=== PATIENT | female | born 1995 | race Caucasian/White ===

== ENCOUNTER 2021-09-20 20:51 | Emergency (ER) | payer MEDICAID, SELFPAY ==
[2021-09-20 20:53] VITALS: BP 133/83; PULSE 104; RESP 16; TEMP 37.1; O2SAT 97; BMI 25.7
--- NOTE | 2021-09-20 21:43 | EX.ED.GENINJ ---
HPI History of Present Illness Chief Complaint: Nausea/Vomiting Narrative Narrative: Patient presents with nausea and vomiting. This started with a migraine about a week ago she has chronic recurrent migraines, she had a gradual onset of headache which improved, however the nausea vomiting persisted. She has no abdominal pain. She has no vaginal discharge. No vaginal bleeding. No urinary symptoms. No recent fevers or chills. She is denying . [facility] Medical History (Updated 09/20/21 @ 23:[address] 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 Home Medications ondansetron 4 mg PO Q8H #10 tab 09/20/21 [Rx Last Taken Unknown] Allergy/AdvReac Type Severity Reaction Status Date / Time codeine AdvReac Unknown Verified 09/20/21 20:58 Surgical History (Updated 09/20/21 @ 21:17 by Charla Lang) History of cranioplasty Social History Smoking Status: Never smoker ROS ROS ED ROS Narrative Past medical history: Reviewed Medications: Reviewed Social history: Noncontributory Review of systems: All systems negative except as indicated General: No fever Eyes: No visual changes ENT: No upper airway congestion, normal voice Neck: No neck pain Cardiovascular: No chest pain Respiratory: No shortness of breath or cough Gastrointestinal: Nausea and vomiting as in HPI Genitourinary: No dysuria Musculoskeletal: Denies myalgias no difficulty with ambulation Skin: No rash Neurological: No memory loss, confusion or any focal weakness Psych: No recent behavioral changes Hematologic: No easy bleeding or easy bruising EXAM Physical Exam Narrative Exam Narrative: Physical exam General: Well nourished, Well developed, No Acute Distress Head: Normocephalic, Atraumatic Eyes: Conjunctiva not pale ENT: Slightly dry mucous membranes Neck: Supple, Nontender, No lymphadenopathy Cardiovascular: Regular rate, Regular rhythm Respiratory: No distress, CTA bilaterally Abdomen: Soft, no epigastric pain or tenderness, very slight suprapubic pain. Otherwise no guarding or rebound. No pain in McBurney's no right upper quadrant pain. Back: Nontender, Normal Inspection. Negative for: CVA tenderness Extremities: Nontender, No edema Skin: Normal color, No rash Neurological: Alert, Normal Strength, Normal Sensation Psychological: Normal affect Const Vital Signs: 09/20/21 20:53 Temperature 98.7 F Temperature Source Temporal Pulse Rate 104 H Respiratory Rate 16 Blood Pressure 133/83 H Blood Pressure Mean 99 Pulse Ox 97 Oxygen Delivery Method Room Air MDM MDM MDM Narrative Medical decision making narrative: Patient significantly improved and has a normal work-up. I reevaluated that she has no abdominal pain. She appears well I will discharge in stable condition. Lab Data Labs: Laboratory Results - last 24 hr 09/20/21 09/20/21 09/20/21 21:44 21:44 22:25 WBC 8.2 RBC 4.51 Hgb 14.2 Hct 40.9 MCV 90.7 MCH 31.5 MCHC 34.7 RDW Std Deviation 40.1 RDW Coeff of Manuela 12.1 Plt Count 183 MPV 9.2 Immature Gran % (Auto) 0.100 Neut % (Auto) 79.8 H Lymph % (Auto) 14.0 L [place] % (Auto) 5.9 Eos % (Auto) 0.0 Baso % (Auto) 0.2 Absolute Neuts (auto) 6.5 Absolute Lymphs (auto) 1.15 Nucleated RBC % 0 Sodium 136 Potassium 3.6 Chloride 105 Carbon Dioxide 23.0 Anion Gap 8 BUN 10 Creatinine 0.71 Estim Creat Clear Calc 96.63 Est GFR (MDRD) Af Amer 130 Est GFR (MDRD) Non-Af 107 BUN/Creatinine Ratio 14.1 Glucose 106 Calcium 9.2 Total Bilirubin 0.40 AST 14 L ALT 16 Alkaline Phosphatase 65 Total Protein 7.8 Albumin 4.2 Globulin 3.6 Albumin/Globulin Ratio 1.2 Urine Color Yellow Urine Clarity Clear Urine pH 7.0 Ur Specific [place] 1.015 Urine Protein 30 H Urine Glucose (UA) Normal Urine Ketones 150 A* Urine Occult Blood Negative Urine Nitrite Negative Urine Bilirubin Negative Urine Urobilinogen 1 H Ur Leukocyte Esterase 100 H Urine RBC 0 SEEN Urine WBC 0-5 SEEN Ur Squamous Epith Cells 0-5 SEEN Urine Bacteria 1+ Urine Mucus 1+ Urine Test Negative Discharge Plan Triage Chief Complaint: Nausea/Vomiting ED Provider: Luciano Mandel Dx/Rx/DC Orders Clinical Impression: Nausea & vomiting Instructions: ED Vomiting (Adult) Prescriptions: New ondansetron 4 mg tablet,disintegrating 4 mg PO Q8H Qty: 10 RF: 0 Primary Care Provider: Care Physician,No Primary Referrals: Care Physician,No Primary [Primary Care Provider] - Disposition Disposition: Home, Self Care
[2021-09-20] MEDS: 0.9% Normal Saline 1,000 ML 1000 ML IV (21:44)
[2021-09-20] MEDS: Ondansetron 4 MG/2 ML Vial IV (21:44)
[2021-09-20 21:52] LABS: Absolute Lymphocyte Count 1.15 X10^3/uL (0.83-4.51); Absolute Neutrophil Count 6.5 X10^3/uL (2.0-7.7); Basophil# 0.02 X10^3/uL; Basophil% 0.2 % (0-1); Hematocrit 40.9 % (37-47); Hemoglobin 14.2 g/dL (12.0-15.0); Lymphocyte # 1.15 X10^3/ul (0.83-4.51); Mean Corp Hgb Conc 34.7 g/dL (32-36); Mean Corpuscular Hgb 31.5 pg (27.0-32.0); Mean Corpuscular Volume 90.7 fL (81-99); Mean Platelet Vol. 9.2 fl (6.2-12.0); Monocyte# 0.48 X10^3/uL; Monocyte% 5.9 % (0-10); NRBC Flagged by Analyzer 0 % (0-5); Neutrophil # 6.53 X10^3/uL (2.7-7.7); Neutrophil % 79.8 % (47-70); Platelet Count 183 K/mm3 (150-450); RBC Distribution Width CV 12.1 % (11.6-14.6); RBC Distribution Width SD 40.1 fl (35.1-43.9); Red Blood Count 4.51 M/mm3 (4.2-5.4); White Blood Count 8.2 K/mm3 (4.4-11.0)
[2021-09-20 22:14] LABS: ALB/GLOB Ratio 1.2 RATIO (0.9-2.4); AST(SGOT) 14 U/L (15-37); Alanine Aminotransfer ALT/SGPT 16 U/L (13-56); Albumin, Serum 4.2 g/dL (3.2-5.0); Alkaline Phosphatase 65 U/L (45-117); Anion Gap 8 (5-15); BUN 10 mg/dL (7-18); BUN/Creat Ratio 14.1 RATIO (10-20); Calcium,Total 9.2 mg/dL (8.5-10.1); Chloride 105 mmol/L (98-107); Creatinine, Serum 0.71 mg/dL (0.55-1.02); EST Glomerular Filtration Rate 107 mL/min (>60); Est Glom Filt Rate - Afr Amer 130 mL/min (>60); Estimated Creatinine Clearance 96.63 ml/min; Globulin 3.6 g/dL (2.2-4.2); Glucose 106 mg/dL (74-106); Potassium 3.6 mmol/L (3.5-5.1); Protein, Total 7.8 g/dL (6.4-8.2); Sodium Level 136 mmol/L (136-145)
[2021-09-20 22:34] LABS: Red Blood Cells-Urine 0 SEEN /hpf (0-5)
[2021-09-20 22:36] LABS: Color, Urine Yellow (Yellow); Glucose, Dipstick Normal (Normal); Leukocyte Esterase-Dipstick 100 /ul (Negative); Nitrite-Dipstick Negative (Negative); Occult Blood-Urine Negative /ul (Negative); Protein-Dipstick 30 mg/dl (Negative); Specific Gravity, Urine 1.015 (1.002-1.030); Urine Bilirubin Dipstick Negative (Negative); Urine Clarity Clear (Clear); Urine Urobilinogen 1 mg/dl (Normal)
[2021-09-20 22:38] LABS: Ketone-Dipstick 150 mg/dl (Negative)
[2021-09-20 22:39] LABS: Internal QC Validated? YES +Cl - CLEAR BKGD; Pregnancy, Urine Negative Negative
[2021-09-20 22:41] LABS: Squamous Epithelial Cells - UA 0-5 SEEN /hpf (5-10); White Blood Cells 0-5 SEEN /hpf (0-5)
[2021-09-20 22:42] LABS: Bacteria 1+ /hpf (None Seen); Mucous, Urine 1+ /hpf (<or=2+)
== END 2021-09-20 23:32 | disposition home or self-care (01) ==
PROVIDERS: Emergency Provider Emergency Medicine; Visit Provider Emergency Medicine
DX: R11.2 Nausea with vomiting, unspecified (principal); R51.9 Headache, unspecified; F98.8 Other specified behavioral and emotional disorders with onset usually occurring in childhood and adolescence
CPT/HCPCS: 80053; 81001; 81025; 85025; 96361; 96374; 99284; J7030; J2405

== ENCOUNTER 2024-12-21 22:04 | Emergency (ER) | payer MEDICARE, MEDICAID, SELFPAY ==
[2024-12-21 22:04] VITALS: BP 139/104; PULSE 88; RESP 17; TEMP 36.7; O2SAT 97; BMI 29.6
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
--- OUTSIDE RECORDS SUMMARY | 2024-12-21 23:12 | XMS RPT_ITS | CCD ---
Author Organization [facility] Results Test Name Value Interpretation Reference Range Facil ity CNOVon 09-23-2021 CNOV Office Visit (UCWSTR ) DEA MANCILLA ([id number]) 1995 F Date Time Provider Department 09/23/21 12:15 PM ROSALVA ESTRADA [facility] During your visit today, we recorded the following information about you: Temperature Pulse Respiration Blood pressure 99.9 degrees 101/minute 18/minute 110/74 Weight 59.6 kg Rosalva Estrada PA-C 09/23/2021 6:48 PM Signed 09/23/2021 Patient presents with: Vomiting: low fever x5 days SUBJECTIVE: This is a 26 year old that is here today for Complaint(s) of vomiting x 5 days. + low grade fever. She was seen in the ER and urine and lab work normal. test negative. She had IV fluids and zofran and discharged with Rx for zofran. Having vomiting and dry heaves every 20 minutes per mom, occasional will go up to 1.5 hours between episodes. She did have a BM this morning, small hard yovany. No blood in the stools or black or tarry stools. She does feel like she has to have a BM, but having trouble. Still passing gas without difficulty. Not having any abdominal pain. Denies dysuria, urinary frequency. She is urinating normally. No POLLACK. PAST MEDICAL HISTORY Diagnosis Date - Asthma - Attention deficit disorder without mention of hyperactivity - Dnskqvh-Popfkbbgn-Ckk er syndrome - Murmur - PMH - PAST MEDICAL HISTORY OF multiple handicap- delayed learning - PMH - PAST MEDICAL HISTORY OF 13 yr started menses - PMH - PAST MEDICAL HISTORY OF 01/23/10 normal color vision ALLERGIES Codeine MEDICATIONS Current Outpatient Medications Medication Sig - ondansetron (ZOFRAN) 4 mg tablet Take by mouth every 8 hours as needed for nausea/vomiting. - atomoxetine (STRATTERA) 60 mg capsule Take 1 capsule by mouth once daily. - adapalene-benzoyl peroxide (EPIDUO) 0.1-2.5 % glwp Apply 1 application to affected area daily at bedtime. (Patient not taking: Reported on 09/05/2021 ) - atomoxetine (STRATTERA) 60 mg capsule Take 1 capsule by mouth once daily. - atomoxetine (STRATTERA) 60 mg capsule Take 1 capsule by mouth once daily. (Patient not taking: Reported on 09/05/2021 ) No current facility-administered medications for this visit. SOCIAL HISTORY Social History Tobacco Use - Smoking status: Never Smoker - Smokeless tobacco: Never Used Substance Use Topics - Alcohol use: No - Drug use: No REVIEW OF SYSTEMS See HPI OBJECTIVE: BP 110/74 Pulse 101 Temp 37.7 ?C (99.9 ?F) Resp 18 Wt 59.6 kg (131 lb 6.4 oz) LMP 03/01/2018 SpO2 99% BMI 23.09 kg/m? APPEARANCE Well appearing, alert, in no acute distress, well-hydrated, well nourished.ess. THROAT normal, no erythema NECK Supple, no adenopathy; HEART RRR with normal S1 and S2, LUNG clear to auscultation ABDOMEN bowel sounds normoactive, no bruits, soft, non-tender, non-distended, without organomegaly or palpable masses, no tenderness to palpation ASSESSMENT/PLAN: 1. Nausea and vomiting, unspecified vomiting type - ICD9: 787.01, ICD10: R11.2 zofran prn-discussed SE of constipation Start stool softener, increase fluid intake, small frequent sips Reviewed red flags and when to seek care sooner in ER, including abdominal pain, signs of dehydration, unable to pass gas or have a BM with abdominal pain. If vomiting not imroved in 24-48 hours to follow up, sooner if any worsening symptoms discussed. Nothing to eat for 24 hours after last episode of vomiting The patient indicates understanding of these issues and agrees with the plan. Rosalva Estrada PA-C 09/23/2021 Referring Provider: SELF [200] Allergies As of Date: 09/23/2021 Noted Allergy Reaction CODEINE 11/07/2005 11 - Vomiting Date Reviewed: 09/23/2021 Reviewed by: Rosalva Estrada PA-C - Fully Assessed Reason for Visit: Vomiting [120] Cmt: low fever x5 days Primary Visit Diagnosis:Nausea and vomiting, unspecified vomiting type [R11.2] Prescriptions as of 09/23/2021 - ondansetron (ZOFRAN) 4 mg tablet Take by mouth every 8 hours as needed for nausea/vomiting. - atomoxetine (STRATTERA) 60 mg capsule Take 1 capsule by mouth once daily. - adapalene-benzoyl peroxide (EPIDUO) 0.1-2.5 % glwp Apply 1 application to affected area daily at bedtime. - atomoxetine (STRATTERA) 60 mg capsule Take 1 capsule by mouth once daily. - atomoxetine (STRATTERA) 60 mg capsule Take 1 capsule by mouth once daily. Meds Comments as of 08/20/2010: Problem List As Of Date 09/23/2021 Noted Resolved Izciyvz-Wqnwzaanw-Wdn er syndrome [Q87.2] Attention deficit disorder without mention of h* Oligomenorrhea [N91.5] 09/14/2012 PMDD (premenstrual dysphoric disorder) [F32.81] 09/14/2012 Acne [L70.9] 09/14/2012 Avulsion, finger tip [S61.209A] 01/04/2013 Well adult exam [Z00.00] 08/24/2015 Letter Text Encounter Status:Closed by ROSALVA ESTRADA on 09/23/21 Normal [facility] Metabolic Prof ilon 09-21-2021 Albumin [Mass/Vol] 4.2 g/dL Normal 3.2-5.0 [facility] Comment on above: Performed By: #### L 500.4050, L100.0100 #### [facility] [address] [place], [address] Albumin/Globulin [Mass ratio] 1.2 {ratio} Normal 0.9-2.4 [facility] Comment on above: Performed By: #### L 500.4050, L100.0100 #### [facility] [address] [place], [address] ALK P 65 U/L Normal 45-117 [facility] Comment on above: Performed By: #### L 500.4050, L100.0100 #### [facility] [address] [place], [address] ALT [Catalytic activity/Vol] 16 U/L Normal 13-56 [facility] Comment on above: Performed By: #### L 500.4050, L100.0100 #### [facility] [address] [place], [address] AST [Catalytic activity/Vol] 14 U/L Low 15-37 [facility] Comment on above: Result Comment: Slig ht Hemolysis, Result may be falsely increased. Performed By: #### L 500.4050, L100.0100 #### [facility] [address] [place], [address] Bilirubin [Mass/Vol] 0.40 mg/dL Normal 0.20-1.00 [facility] Comment on above: Result Comment: For patients on eltrombopag therapy, use of Dimension Munger TBIL is not recommended. Performed By: #### L 500.4050, L100.0100 #### [facility] [address] [place], [address] BUN/CRE 14.1 RATIO Normal 10-20 [facility] Comment on above: Performed By: #### L 500.4050, L100.0100 #### [facility] [address] [place], [address] CA,Total 9.2 mg/dL Normal 8.5-10.1 [facility] Comment on above: Performed By: #### L 500.4050, L100.0100 #### [facility] [address] [place], [address] Chloride [Moles/Vol] 105 mmol/L Normal 98-107 [facility] Comment on above: Performed By: #### L 500.4050, L100.0100 #### [facility] [address] [place], [address] CO2 [Moles/Vol] 23.0 mmol/L Normal 21.0-32.0 [facility] Comment on above: Performed By: #### L 500.4050, L100.0100 #### [facility] [address] [place], [address] Creatinine [Mass/Vol] 0.71 mg/dL Normal 0.55-1.02 [facility] Comment on above: Result Comment: The validity of the calculated GFR GFRAA in patients over 70 years has not been determined. Clinical correlation is essential. Performed By: #### L 500.4050, L100.0100 #### [facility] [address] [place], [address] ECRCL 96.63 ml/min Normal [facility] Comment on above: Performed By: #### L 500.4050, L100.0100 #### [facility] [address] [place], [address] EST GFR - AA 130 mL/min Normal >60 [facility] Comment on above: Result Comment: Afri can Moldovan GFR Calc Performed By: #### L 500.4050, L100.0100 #### [facility] [address] [place], [address] GAP 8 Normal 5-15 [facility] Comment on above: Performed By: #### L 500.4050, L100.0100 #### [facility] [address] [place], [address] GFR/1.73 sq M.predicted among non-blacks MDRD (S/P/Bld) [Vol rate/Area] 107 mL/min/{1.73_m2} Normal >60 [facility] Comment on above: Result Comment: Non- GFR Calc Performed By: #### L 500.4050, L100.0100 #### [facility] [address] [place], [address] Globulin (S) [Mass/Vol] 3.6 g/dL Normal 2.2-4.2 [facility] Comment on above: Performed By: #### L 500.4050, L100.0100 #### [facility] [address] [place], [address] Glucose [Mass/Vol] 106 mg/dL Normal 74-106 [facility] Comment on above: Result Comment: Fast ing Glucose result from 100 to 125 mg/dL suggests IMPAIRED HOMEOSTASIS per A.D.A. criteria. Performed By: #### L 500.4050, L100.0100 #### [facility] [address] [place], [address] Potassium [Moles/Vol] 3.6 mmol/L Normal 3.5-5.1 [facility] Comment on above: Result Comment: Slig ht Hemolysis, Result may be falsely increased. Performed By: #### L 500.4050, L100.0100 #### [facility] [address] [place], [address] Sodium [Moles/Vol] 136 mmol/L Normal 136-145 [facility] Comment on above: Performed By: #### L 500.4050, L100.0100 #### [facility] [address] [place], [address] T PROT 7.8 g/dL Normal 6.4-8.2 [facility] Comment on above: Performed By: #### L 500.4050, L100.0100 #### [facility] [address] [place], [address] Urea nitrogen [Mass/Vol] 10 mg/dL Normal 7-18 [facility] Comment on above: Performed By: #### L 500.4050, L100.0100 #### [facility] [address] [place], [address] ,Urineon 09-21-2021 Beta HCG ( test) Ql (U) Negative Normal [facility] Comment on above: Order Comment: CLEAN CATCH Result Comment: Very dilute urine specimens, as indicated by a low specific gravity, may not contain termite control service representative levels of hCG. If is still suspected, a first morning urine specimen should be collected 48 hours later and tested. Performed By: #### L 400.0001, L400.7600 #### [facility] [address] [place], [address] Urinalysis, Completeon 09-21 BACTERIA 1+ /hpf Normal None Seen [facility] Comment on above: Order Comment: CLEAN CATCH Performed By: #### L 400.0001, L400.7600 #### [facility] [address] [place], [address] Mucus Ql (Urine sed) 1+ /hpf Normal [facility] Comment on above: Order Comment: CLEAN CATCH Performed By: #### L 400.0001, L400.7600 #### [facility] [address] [place], [address] EPI,SQUAMOUS 0-5 SEEN Normal 5-10 [facility] Comment on above: Order Comment: CLEAN CATCH Performed By: #### L 400.0001, L400.7600 #### [facility] [address] [place], [address] WBC 0-5 SEEN Normal 0-5 [facility] Comment on above: Order Comment: CLEAN CATCH Performed By: #### L 400.0001, L400.7600 #### [facility] [address] [place], [address] RBC 0 SEEN Normal 0-5 [facility] Comment on above: Order Comment: CLEAN CATCH Performed By: #### L 400.0001, L400.7600 #### [facility] [address] [place], [address] CBC W/Diff, Automatedon 03-0 4-2021 Absolute Lymph 1.15 X10 3/uL Normal 0.83-4.51 [facility] Comment on above: Performed By: #### L 500.4050, L100.0100 #### [facility] [address] [place], [address] Absolute Neut 6.5 X10 3/uL Normal 2.0-7.7 [facility] Comment on above: Performed By: #### L 500.4050, L100.0100 #### [facility] [address] [place], [address] Basophils/100 WBC (Bld) 0.2 % Normal 0-1 [facility] Comment on above: Performed By: #### L 500.4050, L100.0100 #### [facility] [address] [place], [address] Eosinophils/100 WBC (Bld) 0.0 % Normal 0-5 [facility] Comment on above: Performed By: #### L 500.4050, L100.0100 #### [facility] [address] [place], [address] Erythrocyte distribution width (RBC) [Ratio] 12.1 % Normal 11.6-14.6 [facility] Comment on above: Performed By: #### L 500.4050, L100.0100 #### [facility] [address] [place], [address] Hematocrit (Bld) [Volume fraction] 40.9 % Normal 37-47 [facility] Comment on above: Performed By: #### L 500.4050, L100.0100 #### [facility] [address] [place], [address] Hemoglobin (Bld) [Mass/Vol] 14.2 g/dL Normal 12.0-15.0 [facility] Comment on above: Performed By: #### L 500.4050, L100.0100 #### [facility] [address] [place], [address] IG% 0.100 Normal 0.0-0.9 [facility] Comment on above: Result Comment: IG% - Immature Granulocytes (promyelocytes, myelocytes and metamyelocytes) > 1% indicates that a LEFT SHIFT is Present. Performed By: #### L 500.4050, L100.0100 #### [facility] [address] [place], [address] Lymphocytes/100 WBC (Bld) 14.0 % Low 19-41 [facility] Comment on above: Performed By: #### L 500.4050, L100.0100 #### [facility] [address] [place], [address] MCH (RBC) [Entitic mass] 31.5 pg Normal 27.0-32.0 [facility] Comment on above: Performed By: #### L 500.4050, L100.0100 #### [facility] [address] [place], [address] MCHC (RBC) [Mass/Vol] 34.7 g/dL Normal 32-36 [facility] Comment on above: Performed By: #### L 500.4050, L100.0100 #### [facility] [address] [place], [address] MCV (RBC) [Entitic vol] 90.7 fL Normal 81-99 [facility] Comment on above: Performed By: #### L 500.4050, L100.0100 #### [facility] [address] [place], [address] Monocytes/100 WBC (Bld) 5.9 % Normal 0-10 [facility] Comment on above: Performed By: #### L 500.4050, L100.0100 #### [facility] [address] [place], [address] Neutrophils/100 WBC (Bld) 79.8 % High 47-70 [facility] Comment on above: Performed By: #### L 500.4050, L100.0100 #### [facility] [address] [place], [address] Nucleated RBC (Bld) [#/Vol] 0 10*3/uL Normal 0-5 [facility] Comment on above: Performed By: #### L 500.4050, L100.0100 #### [facility] [address] [place], [address] Platelet mean volume (Bld) [Entitic vol] 9.2 fL Normal 6.2-12.0 [facility] Comment on above: Performed By: #### L 500.4050, L100.0100 #### [facility] [address] [place], [address] Platelets (Bld) [#/Vol] 183 10*3/uL Normal 150-450 [facility] Comment on above: Performed By: #### L 500.4050, L100.0100 #### [facility] [address] [place], [address] RBC (Bld) [#/Vol] 4.51 10*6/uL Normal 4.2-5.4 [facility] Comment on above: Performed By: #### L 500.4050, L100.0100 #### [facility] [address] [place], [address] RDW SD 40.1 fl Normal 35.1-43.9 [facility] Comment on above: Performed By: #### L 500.4050, L100.0100 #### [facility] [address] [place], [address] WBC (Bld) [#/Vol] 8.2 10*3/uL Normal 4.4-11.0 [facility] Comment on above: Performed By: #### L 500.4050, L100.0100 #### [facility] [address] [place], [address] Emergency Department Summary on 09-20-2021 Emergency Department Summary [facility] Medical Records Department [address] [place] [address] Emergency Department Summary 09/20/21 MR#: [id number] Acct: [id number] Name: DEA MANCILLA Rep #: [id number] : 1995 26 From: Luciano Mandel MD PCP: Care Physician,No Primary Status:REG ER Location: ED HPI History of Present Illness Chief Complaint: Nausea/Vomiting Narrative Narrative: Patient presents with nausea and vomiting. This started with a migraine about a week ago she has chronic recurrent migraines, she had a gradual onset of headache which improved, however the nausea vomiting persisted. She has no abdominal pain. She has no vaginal discharge. No vaginal bleeding. No urinary symptoms. No recent fevers or chills. She is denying . [facility] Medical History (Updated 09/20/21 @ 23:[address] 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 Home Medications ondansetron 4 mg PO Q8H #10 tab 09/20/21 [Rx Last Taken Unknown] Allergy/AdvReac Type Severity Reaction Status Date / Time codeine AdvReac Unknown Verified 09/20/21 20:58 Surgical History (Updated 09/20/21 @ 21:17 by Charla Lang) History of cranioplasty Social History Smoking Status: Never smoker ROS ROS ED ROS Narrative Past medical history: Reviewed Medications: Reviewed Social history: Noncontributory Review of systems: All systems negative except as indicated General: No fever Eyes: No visual changes ENT: No upper airway congestion, normal voice Neck: No neck pain Cardiovascular: No chest pain Respiratory: No shortness of breath or cough Gastrointestinal: Nausea and vomiting as in HPI Genitourinary: No dysuria Musculoskeletal: Denies myalgias no difficulty with ambulation Skin: No rash Neurological: No memory loss, confusion or any focal weakness Psych: No recent behavioral changes Hematologic: No easy bleeding or easy bruising EXAM Physical Exam Narrative Exam Narrative: Physical exam General: Well nourished, Well developed, No Acute Distress Head: Normocephalic, Atraumatic Eyes: Conjunctiva not pale ENT: Slightly dry mucous membranes Neck: Supple, Nontender, No lymphadenopathy Cardiovascular: Regular rate, Regular rhythm Respiratory: No distress, CTA bilaterally Abdomen: Soft, no epigastric pain or tenderness, very slight suprapubic pain. Otherwise no guarding or rebound. No pain in McBurney's no right upper quadrant pain. Back: Nontender, Normal Inspection. Negative for: CVA tenderness Extremities: Nontender, No edema Skin: Normal color, No rash Neurological: Alert, Normal Strength, Normal Sensation Psychological: Normal affect Const Vital Signs: 09/20/21 20:53 Temperature 98.7 F Temperature Source Temporal Pulse Rate 104 H Respiratory Rate 16 Blood Pressure 133/83 H Blood Pressure Mean 99 Pulse Ox 97 Oxygen Delivery Method Room Air MDM MDM MDM Narrative Medical decision making narrative: Patient significantly improved and has a normal work-up. I reevaluated that she has no abdominal pain. She appears well I will discharge in stable condition. Lab Data Labs: Laboratory Results - last 24 hr 09/20/21 09/20/21 09/20/21 21:44 21:44 22:25 WBC 8.2 RBC 4.51 Hgb 14.2 Hct 40.9 MCV 90.7 MCH 31.5 MCHC 34.7 RDW Std Deviation 40.1 RDW Coeff of Manuela 12.1 Plt Count 183 MPV 9.2 Immature Gran % (Auto) 0.100 Neut % (Auto) 79.8 H Lymph % (Auto) 14.0 L Corson % (Auto) 5.9 Eos % (Auto) 0.0 Baso % (Auto) 0.2 Absolute Neuts (auto) 6.5 Absolute Lymphs (auto) 1.15 Nucleated RBC % 0 Sodium 136 Potassium 3.6 Chloride 105 Carbon Dioxide 23.0 Anion Gap 8 BUN 10 Creatinine 0.71 Estim Creat Clear Calc 96.63 Est GFR (MDRD) Af Amer 130 Est GFR (MDRD) Non-Af 107 BUN/Creatinine Ratio 14.1 Glucose 106 Calcium 9.2 Total Bilirubin 0.40 AST 14 L ALT 16 Alkaline Phosphatase 65 Total Protein 7.8 Albumin 4.2 Globulin 3.6 Albumin/Globulin Ratio 1.2 Urine Color Yellow Urine Clarity Clear Urine pH 7.0 Ur Specific Hamilton 1.015 Urine Protein 30 H Urine Glucose (UA) Normal Urine Ketones 150 A* Urine Occult Blood Negative Urine Nitrite Negative Urine Bilirubin Negative Urine Urobilinogen 1 H Ur Leukocyte Esterase 100 H Urine RBC 0 SEEN Urine WBC 0-5 SEEN Ur Squamous Epith Cells 0-5 SEEN Urine Bacteria 1+ Urine Mucus 1+ Urine Test Negative Discharge Plan Triage Chief Complaint: Nausea/Vomiting ED Provider: Luciano Mandel Dx/Rx/DC Orders Clinical Impression: Nausea vomiting Instructions: ED Vomiting (Adult) Prescriptions: (more content not included)... [facility] 09-07-2021 [facility] Telephone (UCTR) DEA MANCILLA ([id number]) 1995 F Date Time Provider Department 09/07/21 SAAD MCKINLEY [facility] During your visit today, we recorded the following information about you: Saad Mckinley APRN.[facility] 09/07/2021 8:24 AM Signed Please notify that covid/flu testing negative. Continue with plan of care as discussed during visit. Chichi Pleitez 09/07/2021 10:07 AM Signed Left message for patient to return call. Chichi Pleitez 09/07/2021 10:23 AM Signed Patient given results and verbalized understanding of instructions given. Chichi Pleitez Allergies As of Date: 09/07/2021 Noted Allergy Reaction CODEINE 11/07/2005 11 - Vomiting Date Reviewed: 09/05/2021 Reviewed by: Saad Mckinley APRN.[facility] - Fully Assessed Reason for Visit: Results [95] Prescriptions as of 09/07/2021 - ofloxacin (FLOXIN) 0.3 % otic solution Use 10 Drops in the right ear once daily for 7 days. - atomoxetine (STRATTERA) 60 mg capsule Take 1 capsule by mouth once daily. - adapalene-benzoyl peroxide (EPIDUO) 0.1-2.5 % glwp Apply 1 application to affected area daily at bedtime. - atomoxetine (STRATTERA) 60 mg capsule Take 1 capsule by mouth once daily. - atomoxetine (STRATTERA) 60 mg capsule Take 1 capsule by mouth once daily. Meds Comments as of 08/20/2010: Problem List As Of Date 09/07/2021 Noted Resolved Ygsumkv-Rbrgovddz-Sbe er syndrome [Q87.2] Attention deficit disorder without mention of h* Oligomenorrhea [N91.5] 09/14/2012 PMDD (premenstrual dysphoric disorder) [F32.81] 09/14/2012 Acne [L70.9] 09/14/2012 Avulsion, finger tip [S61.209A] 01/04/2013 Well adult exam [Z00.00] 08/24/2015 Encounter Status:Closed by CHICHI PLEITEZ on 09/07/21 [facility] CNOVon 09-05-2021 CNOV Office Visit (UCWSTR ) DEA MANCILLA ([id number]) 1995 F Date Time Provider Department 09/05/21 8:15 AM SAAD MCKINLEY During your visit today, we recorded the following information about you: Temperature Pulse Respiration Blood pressure 97.6 degrees 87/minute 16/minute 118/78 Weight 64 kg Saad MckinleyJED.[facility]ER 09/05/2021 10:07 AM Addendum Subjective HPI HPI Dea Mancilla is a 26 year old female who presents today for CC of nasal congestion, vomiting, headache, right ear bleeding. This started 1-2 days ago. Has tried nothing for relief. Symptoms are worsened by nothing. Risk factors no known sick exposures. Denies cp/sob, diarrhea, loss taste/smell. Reports using qtips frequently. .Patient presents with: Ear Pain: R ear pain, congestion, vomiting x this AM PAST MEDICAL HISTORY Diagnosis Date - Asthma - Attention deficit disorder without mention of hyperactivity - Irbveqw-Rubnhrbpv-Pzk er syndrome - Murmur - PMH - PAST MEDICAL HISTORY OF multiple handicap- delayed learning - PMH - PAST MEDICAL HISTORY OF 13 yr started menses - PMH - PAST MEDICAL HISTORY OF 01/23/10 normal color vision PAST SURGICAL HISTORY Procedure Laterality Date - PAST SURGICAL HISTORY OF 02/22 and 2000 bilateral ear tubes x 2 - PAST SURGICAL HISTORY OF 2006 had tongue clipped - REDUCTN CRANIOMEG W CRANIOPLASTY at 10 months - TONSILLECTOMY AND ADENOIDECTOMY ALLERGIES Codeine MEDICATIONS ofloxacin (FLOXIN) 0.3 % otic solution Use 10 Drops in the right ear once daily for 7 days. atomoxetine (STRATTERA) 60 mg capsule Take 1 capsule by mouth once daily. adapalene-benzoyl peroxide (EPIDUO) 0.1-2.5 % glwp Apply 1 application to affected area daily at bedtime. atomoxetine (STRATTERA) 60 mg capsule Take 1 capsule by mouth once daily. atomoxetine (STRATTERA) 60 mg capsule Take 1 capsule by mouth once daily. FAMILY HISTORY Problem Relation Age of Onset - Hypertension Maternal Grandmother - Heart Maternal Grandfather - Hypertension Maternal Grandfather - other (sacroidosis) Maternal Grandfather - Hypertension Father - Diabetes Paternal Grandmother - Hypertension Paternal Grandmother - Hypertension Paternal Grandfather - other (Kindey Failure) Paternal Grandfather Social History Tobacco Use - Smoking status: Never Smoker - Smokeless tobacco: Never Used Substance Use Topics - Alcohol use: No - Drug use: No Review of Systems Constitutional: Negative for fever. HENT: Positive for congestion and ear discharge. Negative for ear pain, nosebleeds and sore throat. Respiratory: Negative for cough, shortness of breath and wheezing. Cardiovascular: Negative for chest pain. Gastrointestinal: Positive for vomiting. Negative for abdominal pain, blood in stool, diarrhea and nausea. Musculoskeletal: Negative for neck pain. Skin: Negative for itching and rash. Neurological: Positive for headaches. Objective Blood pressure 118/78, pulse 87, temperature 36.4 ?C (97.6 ?F), resp. rate 16, weight 64 kg (141 lb), last menstrual period 03/01/2018, SpO2 98 %. Physical Exam Constitutional: General: She is not in acute distress. Appearance: She is not toxic-appearing or diaphoretic. HENT: Head: Normocephalic and atraumatic. Right Ear: Hearing, tympanic membrane and external ear normal. Left Ear: Hearing, tympanic membrane, ear canal and external ear normal. Ears: Comments: Scab and dried blood noted in canal Nose: Nose normal. Mouth/Throat: Pharynx: Uvula midline. No pharyngeal swelling, oropharyngeal exudate, posterior oropharyngeal erythema or uvula swelling. Eyes: General: Lids are normal. No scleral icterus. Right eye: No discharge. Left eye: No discharge. Conjunctiva/sclera: Conjunctivae normal. Pupils: Pupils are equal, round, and reactive to light. Neck: Trachea: Trachea normal. Cardiovascular: Rate and Rhythm: Normal rate and regular rhythm. Heart sounds: Normal heart sounds. Pulmonary: Effort: Pulmonary effort is normal. Breath sounds: Normal breath sounds. Abdominal: General: Bowel sounds are normal. Tenderness: There is no abdominal tenderness. Musculoskeletal: Cervical back: Normal range of motion and neck supple. Lymphadenopathy: Cervical: No cervical adenopathy. Right cervical: No superficial cervical adenopathy. Left cervical: No superficial cervical adenopathy. Skin: Findings: No rash. Neurological: Mental Status: She is alert and oriented to person, place, and time. ASSESSMENT/PLAN: 1. Irritation of external ear canal, right - ICD9: 380.89, ICD10: H61.891 (primary diagnosis) -education material provided -use medication as prescribed -f/u if no better in 3-5 days -discussed proper ear hygiene -discussed prevention - OFLOXACIN 0.3 % EAR DROPS 2. Viral syndrome - ICD9: 079.99, ICD10: B34.9 - Discussed vir (more content not included)... [facility] COVID w FLU A+B Routon 09-05 Influenza A PCR Negative [facility] Comment on above: Performed By: #### C OVFLU #### [place] [id number] [place] [address] Influenza B PCR Negative [facility] Comment on above: Performed By: #### C OVFLU #### [place] [id number] [place] [address] SARS-CoV-2 (COVID-19) RNA YARY+probe Ql (Unsp spec) UPPER RESPIRATORY TRACT SWAB [facility] Comment on above: Performed By: #### C OVFLU #### [place] [address] SARS-CoV-2 (COVID-19) RNA AYRY+probe Ql (Unsp spec) Negative for COVID19 (SARS CoV2) by RT-PCR or equivalent method. Normal Negative for COVID19 (SARS CoV2) by RT-PCR or equivalent method. [facility] Comment on above: Result Comment: This test was developed and its performance characteristics determined by [facility]'s [facility] [place]. This test has been authorized by FDA under an Emergency Use Authorization (EUA). This test has been validated in accordance with the FDA's Guidance Document Policy for Diagnostics Testing in Laboratories Certified to Perform High Complexity Testing under CLIA prior to Emergency use Authorization for Coronavirus Disease 2019 during the Public Health Emergency issued on September 17, 2019. Test performed by [facility], [facility] [place], [address] [place] [address]. Performed By: #### C OVFLU #### [place] [address] Progress note 09-23-2021 Note Date & Type Note Facility 09-23-2021 Note HNO ID: [id number] Author: Rosalva Estrada PA-C Service: ? Author Type: Physician Arborist Representative Type: Progress Notes Filed: 09/23/2021 6:48 PM Note Text: 09/23/2021 Patient presents with: Vomiting: low fever x5 days SUBJECTIVE: This is a 26 year old that is here today for Complaint(s) of vomiting x 5 days. + low grade fever. She was seen in the ER and urine and lab work normal. test negative. She had IV fluids and zofran and discharged with Rx for zofran. Having vomiting and dry heaves every 20 minutes per mom, occasional will go up to 1.5 hours between episodes. She did have a BM this morning, small hard yovany. No blood in the stools or black or tarry stools. She does feel like she has to have a BM, but having trouble. Still passing gas without difficulty. Not having any abdominal pain. Denies dysuria, urinary frequency. She is urinating normally. No POLLACK. PAST MEDICAL HISTORY Diagnosis Date - Asthma - Attention deficit disorder without mention of hyperactivity - Fvbswcc-Afjutsnev-Udqxp syndrome - Murmur - PMH - PAST MEDICAL HISTORY OF multiple handicap- delayed learning - PMH - PAST MEDICAL HISTORY OF 13 yr started menses - PMH - PAST MEDICAL HISTORY OF 01/23/10 normal color vision ALLERGIES Codeine MEDICATIONS Current Outpatient Medications Medication Sig - ondansetron (ZOFRAN) 4 mg tablet Take by mouth every 8 hours as needed for nausea/vomiting. - atomoxetine (STRATTERA) 60 mg capsule Take 1 capsule by mouth once daily. - adapalene-benzoyl peroxide (EPIDUO) 0.1-2.5 % glwp Apply 1 application to affected area daily at bedtime. (Patient not taking: Reported on 09/05/2021 ) - atomoxetine (STRATTERA) 60 mg capsule Take 1 capsule by mouth once daily. - atomoxetine (STRATTERA) 60 mg capsule Take 1 capsule by mouth once daily. (Patient not taking: Reported on 09/05/2021 ) No current facility-administered medications for this visit. SOCIAL HISTORY Social History Tobacco Use - Smoking status: Never Smoker - Smokeless tobacco: Never Used Substance Use Topics - Alcohol use: No - Drug use: No REVIEW OF SYSTEMS See HPI OBJECTIVE: BP 110/74 Pulse 101 Temp 37.7 ?C (99.9 ?F) Resp 18 Wt 59.6 kg (131 lb 6.4 oz) LMP 03/01/2018 SpO2 99% BMI 23.09 kg/m? APPEARANCE Well appearing, alert, in no acute distress, well-hydrated, well nourished.ess. THROAT normal, no erythema NECK Supple, no adenopathy; HEART RRR with normal S1 and S2, LUNG clear to auscultation ABDOMEN bowel sounds normoactive, no bruits, soft, non-tender, non-distended, without organomegaly or palpable masses, no tenderness to palpation ASSESSMENT/PLAN: 1. Nausea and vomiting, unspecified vomiting type - ICD9: 787.01, ICD10: R11.2 zofran prn-discussed SE of constipation Start stool softener, increase fluid intake, small frequent sips Reviewed red flags and when to seek care sooner in ER, including abdominal pain, signs of dehydration, unable to pass gas or have a BM with abdominal pain. If vomiting not imroved in 24-48 hours to follow up, sooner if any worsening symptoms discussed. Nothing to eat for 24 hours after last episode of vomiting The patient indicates understanding of these issues and agrees with the plan. Rosalva Estrada PA-C 09/23/2021 [facility] Progress note 09-05-2021 Note Date & Type Note Facility 09-05-2021 Note HNO ID: [id number] Author: Saad Mckinley APRN.SCALLOP BINDER Service: ? Author Type: Nurse Practitioner Type: Progress Notes Filed: 09/05/2021 10:07 AM Note Text: Subjective HPI HPI Dea Mancilla is a 26 year old female who presents today for CC of nasal congestion, vomiting, headache, right ear bleeding. This started 1-2 days ago. Has tried nothing for relief. Symptoms are worsened by nothing. Risk factors no known sick exposures. Denies cp/sob, diarrhea, loss taste/smell. Reports using qtips frequently. .Patient presents with: Ear Pain: R ear pain, congestion, vomiting x this AM PAST MEDICAL HISTORY Diagnosis Date - Asthma - Attention deficit disorder without mention of hyperactivity - Bkazelf-Vgeqjaspt-Wpcdy syndrome - Murmur - PMH - PAST MEDICAL HISTORY OF multiple handicap- delayed learning - PMH - PAST MEDICAL HISTORY OF 13 yr started menses - PMH - PAST MEDICAL HISTORY OF 01/23/10 normal color vision PAST SURGICAL HISTORY Procedure Laterality Date - PAST SURGICAL HISTORY OF 02/22 and 2000 bilateral ear tubes x 2 - PAST SURGICAL HISTORY OF 2006 had tongue clipped - REDUCTN CRANIOMEG W CRANIOPLASTY at 10 months - TONSILLECTOMY AND ADENOIDECTOMY ALLERGIES Codeine MEDICATIONS ofloxacin (FLOXIN) 0.3 % otic solution Use 10 Drops in the right ear once daily for 7 days. atomoxetine (STRATTERA) 60 mg capsule Take 1 capsule by mouth once daily. adapalene-benzoyl peroxide (EPIDUO) 0.1-2.5 % glwp Apply 1 application to affected area daily at bedtime. atomoxetine (STRATTERA) 60 mg capsule Take 1 capsule by mouth once daily. atomoxetine (STRATTERA) 60 mg capsule Take 1 capsule by mouth once daily. FAMILY HISTORY Problem Relation Age of Onset - Hypertension Maternal Grandmother - Heart Maternal Grandfather - Hypertension Maternal Grandfather - other (sacroidosis) Maternal Grandfather - Hypertension Father - Diabetes Paternal Grandmother - Hypertension Paternal Grandmother - Hypertension Paternal Grandfather - other (Kindey Failure) Paternal Grandfather Social History Tobacco Use - Smoking status: Never Smoker - Smokeless tobacco: Never Used Substance Use Topics - Alcohol use: No - Drug use: No Review of Systems Constitutional: Negative for fever. HENT: Positive for congestion and ear discharge. Negative for ear pain, nosebleeds and sore throat. Respiratory: Negative for cough, shortness of breath and wheezing. Cardiovascular: Negative for chest pain. Gastrointestinal: Positive for vomiting. Negative for abdominal pain, blood in stool, diarrhea and nausea. Musculoskeletal: Negative for neck pain. Skin: Negative for itching and rash. Neurological: Positive for headaches. Objective Blood pressure 118/78, pulse 87, temperature 36.4 ?C (97.6 ?F), resp. rate 16, weight 64 kg (141 lb), last menstrual period 03/01/2018, SpO2 98 %. Physical Exam Constitutional: General: She is not in acute distress. Appearance: She is not toxic-appearing or diaphoretic. HENT: Head: Normocephalic and atraumatic. Right Ear: Hearing, tympanic membrane and external ear normal. Left Ear: Hearing, tympanic membrane, ear canal and external ear normal. Ears: Comments: Scab and dried blood noted in canal Nose: Nose normal. Mouth/Throat: Pharynx: Uvula midline. No pharyngeal swelling, oropharyngeal exudate, posterior oropharyngeal erythema or uvula swelling. Eyes: General: Lids are normal. No scleral icterus. Right eye: No discharge. Left eye: No discharge. Conjunctiva/sclera: Conjunctivae normal. Pupils: Pupils are equal, round, and reactive to light. Neck: Trachea: Trachea normal. Cardiovascular: Rate and Rhythm: Normal rate and regular rhythm. Heart sounds: Normal heart sounds. Pulmonary: Effort: Pulmonary effort is normal. Breath sounds: Normal breath sounds. Abdominal: General: Bowel sounds are normal. Tenderness: There is no abdominal tenderness. Musculoskeletal: Cervical back: Normal range of motion and neck supple. Lymphadenopathy: Cervical: No cervical adenopathy. Right cervical: No superficial cervical adenopathy. Left cervical: No superficial cervical adenopathy. Skin: Findings: No rash. Neurological: Mental Status: She is alert and oriented to person, place, and time. ASSESSMENT/PLAN: 1. Irritation of external ear canal, right - ICD9: 380.89, ICD10: H61.891 (primary diagnosis) -education material provided -use medication as prescribed -f/u if no better in 3-5 days -discussed proper ear hygiene -discussed prevention - OFLOXACIN 0.3 % EAR DROPS 2. Viral syndrome - ICD9: 079.99, ICD10: B34.9 - Discussed viral etiology and rationale for treatment. - Symptomatic treatment with prn analgesia - Supportive care with fluids and rest - Follow up in 3-5 days if symptoms persist or sooner if worsening of symptoms Discussed quarantine, social distancing otc medications discussed Push fl (more content not included)... [facility] Progress note 09-05-2021 Note Date & Type Note Facility 09-05-2021 Note HNO ID: [id number] Author: Saad Mckinley APRN.SCALLOP BINDER Service: ? Author Type: Nurse Practitioner Type: Progress Notes Filed: 09/05/2021 8:19 AM Note Text: Patient triaged at [facility]. Here today with fall, neck/shoulder injury. Patient has spinal cord injury in area of pain now with new lump and severe pain. I discussed limitations of [facility]. I recommended ER evaluation/treatment [facility] Summary Purpose Family History No Family History Records FoundNo Family History Records Found Advance Directives No Advanced Directives Records FoundNo Advanced Directives Records Found Additional Source Comments INFORMATION SOURCE (unrecogn ized section and content) DATE CREATED AUTHOR 10/08/2021 [facility] DATE CREATED AUTHOR AUTHOR'Martín MODI 11/22/2021 [facility] FOR RECORDS PERTAINING TO PATIENTS WHO ARE OR HAVE BEEN ENROLLED IN A CHEMICAL DEPENDENCY/SUBSTANCEABUSE PROGRAM, SOME INFORMATION MAY BE OMITTED. This clinical summary was aggregated from multiple sources. Caution should be exercised in using it in the provision of clinical care. This summary normalizes information from multiple sources, and as a consequence, information in this document may materially change the coding, format and clinical context of patient data. In addition, data may be omitted in some cases. CLINICAL DECISIONS SHOULD BE BASED ON THE PRIMARY CLINICAL RECORDS. [facility]. provides no warranty or guarantee of the accuracy or completeness of information in this document.
== END 2024-12-21 23:13 | disposition home or self-care (01) ==
LOC: ED 23:10
PROVIDERS: Emergency Provider Emergency Medicine; Visit Provider Emergency Medicine
DX: S00.83XA Contusion of other part of head, initial encounter (principal); F98.8 Other specified behavioral and emotional disorders with onset usually occurring in childhood and adolescence; V43.52XA Car driver injured in collision with other type car in traffic accident, initial encounter; F89 Unspecified disorder of psychological development; Q87.2 Congenital malformation syndromes predominantly involving limbs
CPT/HCPCS: 99282